=== PATIENT | male | born 1970 | race Caucasian/White ===

== ENCOUNTER 2024-12-12 03:54 | Emergency (ER) | payer OTHER ==
[~2024-12-12] VITALS: Ht 162.6 cm; Wt 84.0 kg
[2024-12-12 03:56] VITALS: O2SAT 98
[2024-12-12 04:41] LABS: BASOPHILS % 0.5 % (0.0-2.0); EOSINOPHILS % 3.1 % (0.0-5.0); HEMATOCRIT. 41.1 % (42.0-52.0); HEMOGLOBIN. 13.8 g/dL (14.0-18.0); LYMPHOCYTES % 36.8 % (20.0-50.0); MEAN PLATELET VOLUME 7.8 fl (7.4-10.4); MONOCYTES % 6.3 % (2.0-8.0); NEUTROPHILS % 53.3 % (40.0-76.0); PLATELET 183 x1000/uL (130-400); RED BLOOD CELL COUNT 4.61 mill/uL (4.7-6.1); RED CELL DISTRIBUTION WIDTH 13.5 % (11.6-14.6)
[2024-12-12 04:58] LABS: CREATININE 1.1 mg/dL (0.6-1.3); ETHANOL BLOOD < 10 mg/dL (<10); UREA NITROGEN BLOOD 12 mg/dL (9-23)
[2024-12-12] MEDS: LEVETIRACETAM 1000MG PREMIX 100 ML IV ONE (04:59)
[2024-12-12] MEDS: SODIUM CHLORIDE 0.9% 1,000 ML IV ONE (04:59)
[2024-12-12] MEDS: KETOROLAC 15MG/ML VIAL IV ONE (05:00)
[2024-12-12 06:23] VITALS: BP 113/64; PULSE 61; RESP 19; TEMP 36.6; O2SAT 96
== END 2024-12-12 06:31 | disposition home or self-care (01) ==
LOC: ER 03:54
DX: G40.909 Epilepsy, unspecified, not intractable, without status epilepticus (principal)
CPT/HCPCS: 80048; 80320; 85025; 36415; 96365; 96375; 99284; J1953; J1885; J7030; 96361; G0480